=== PATIENT | male | born 1980 | race Caucasian/White ===

== ENCOUNTER 2017-11-13 02:07 | Emergency (ER) | payer SELFPAY ==
[~2017-11-13] VITALS: Ht 175.3 cm; Wt 90.7 kg
--- NOTE | 2017-11-13 02:37 | Emergency Room Report ---
History of Present Illness General Chief Complaint: Laceration Source: Patient Present Illness HPI Is a 37-year-old male brought in by his roommate for head injury and scalp laceration. He's been drinking tonight and fell in the bathroom and hitting his head. No loss of consciousness. He sustained a large laceration from the frontal scalp to the forehead area. Pain is 7 out of 10. No other injury. No neck pain. No back pain. Allergies: Coded Allergies: Cultivated Oat Pollen (Unverified Allergy, Unknown, 04/05/15) Patient History Past Medical History: see triage record, old chart reviewed Past Surgical History: none Pertinent Family History: none Social History: Reports: alcohol use Immunizations: other Reviewed Nursing Documentation: PMH: Agreed; PSxH: Agreed Nursing Documentation-PMH Past Medical History: No Stated History Review of Systems Eye: Denies: eye pain, blurred vision ENT: Denies: ear pain, nose congestion, throat swelling Respiratory: Denies: cough, shortness of breath Cardiovascular: Denies: chest pain, palpitations Gastrointestinal: Denies: abdominal pain, diarrhea, nausea, vomiting Musculoskeletal: Denies: back pain, joint pain Skin: Denies: rash Neurological: Denies: headache, numbness Endocrine: Denies: increased thirst, increased urine Hematologic/Lymphatic: Denies: easy bruising All Other Systems: negative except mentioned in HPI Physical Exam Vital Signs Date Time Temp Pulse Resp B/P (MAP) Pulse Ox O2 Delivery O2 Flow Rate FiO2 11/13/17 02:24 97.8 120 16 166/101 94 Room Air 97.9 vitals with tachycardia and HTN Sp02 EP Interpretation: reviewed, normal General Appearance: well appearing, no apparent distress, alert Head: normocephalic, other - 8 cm lac from frontal scalp to forehead. Eyes: bilateral eye PERRL, bilateral eye EOMI ENT: hearing grossly normal, normal pharynx Neck: full range of motion, supple, no meningismus Respiratory: chest non-tender, lungs clear, normal breath sounds Cardiovascular #1: regular rate, rhythm, no murmur Gastrointestinal: normal bowel sounds, non tender, no mass, no organomegaly, no bruit, non-distended Musculoskeletal: back normal, gait/station normal, normal range of motion Psychiatric: mood/affect normal Skin: warm/dry Procedures Laceration/Wound Repair Laceration/Wound Repair : Consent: Verbal Wound Location: head, face Wound's Depth, Shape: into muscle, linear, contused tissue Wound Length (cm): 8 Wound Explored: clean Irrigated w/ Saline (ccs): 2000 Anesthesia: Lidocaine w/ Epi Volume Anesthetic (ccs): 10 Wound Repaired With: sutures Suture Size/Type: 4:0, proline Number of Sutures: 12 Patient Tolerated: Well Complications: None Medical Decision Making Diagnostic Impression: Primary Impression: Head injury, acute Qualified Codes: S09.90XA - Unspecified injury of head, initial encounter Additional Impressions: Scalp laceration Qualified Codes: S01.01XA - Laceration without foreign body of scalp, initial encounter Forehead laceration Qualified Codes: S01.81XA - Laceration without foreign body of other part of head, initial encounter Alcohol intoxication Qualified Codes: F10.920 - Alcohol use, unspecified with intoxication, uncomplicated ER Course Patient presents with a fall and has head injury and a large scalp laceration. I would a CT scan but he refused. He was worried about the cost of it. He said he felt fine and has no pain or nausea or neurological deficit. Even though he's been drinking he is competent and has the capacity to make that decision in my opinion. I explained the risks of bleeding mobility and mortality. I asked him to get CT scan several times and each time he declined politely. When I was suturing him, was able to examine the skull. There is no stepdown or deformity to the skull underneath the laceration. CT/MRI/US Diagnostic Results CT/MRI/US Diagnostic Results : Imaging Test Ordered: cT head Impression patient declined the CT scan Last Vital Signs Date Time Temp Pulse Resp B/P (MAP) Pulse Ox O2 Delivery O2 Flow Rate FiO2 11/13/17 02:24 97.8 120 16 166/101 94 Room Air 97.9 Status: improved Disposition: HOME, SELF-CARE Condition: Stable Scripts Cephalexin* (KEFLEX*) 500 Mg Capsule 500 MG ORAL TID, #21 CAP Prov: KATIANA BRIONES M.D. 11/13/17 Ibuprofen* (MOTRIN*) 600 Mg Tablet 600 MG ORAL THREE TIMES A DAY, #30 TAB 0 Refills Prov: KATIANA BRIONES M.D. 11/13/17 Referrals: NOT CHOSEN [facility]/,REFERRING (PCP) Patient Instructions: Laceration Care, Adult Additional Instructions: Follow-up with your doctor in 7 days for suture removal. I recommended getting a CT scan of the head to make sure there is no bleeding inside the skull. You declined. Return if you have increasing pain, vomiting, change in mental status , seizure or any neurological deficit. You can clean your hair with soap and water. Be careful with combing your hair to not snag the suture. Return if worse. KATIANA BRIONES M.D. November 13, 2017 02:37
[2017-11-13] MEDS ORDERED: Tetanus/Diptheria/Pertussis Vaccine 0.5ml Syr IM ONE (02:45)
[2017-11-13 02:46] VITALS: BP 152/91
[2017-11-13 03:00] VITALS: BP 152/91
[2017-11-13] MEDS ORDERED: CEPHALEXIN500 MG ORAL (03:34)
[2017-11-13] MEDS ORDERED: IBUPROFEN600 MG ORAL (03:34)
== END 2017-11-13 03:50 | disposition home or self-care (01) ==
LOC: EMR 02:20
DX: S01.01XA Laceration without foreign body of scalp, initial encounter (principal); S01.81XA Laceration without foreign body of other part of head, initial encounter; W19.XXXA Unspecified fall, initial encounter; Y92.002 Bathroom of unspecified non-institutional (private) residence as the place of occurrence of the external cause; F10.129 Alcohol abuse with intoxication, unspecified; Z23 Encounter for immunization
CPT/HCPCS: 90471; 90715; 96372; 99284